=== PATIENT | female | born 1980 | race Two or more races ===

== ENCOUNTER → 2021-11-17 08:08 | Outpatient (BNVA) | payer OTHER, SELFPAY | PROVIDERS: PCP Internal Medicine; Visit Provider Nurse Practitioner Family | DX: G43.109 Migraine with aura, not intractable, without status migrainosus (principal); G47.9 Sleep disorder, unspecified; G47.19 Other hypersomnia; R06.83 Snoring; M54.2 Cervicalgia | CPT/HCPCS: 99202 ==

== ENCOUNTER 2022-02-05 10:57 | Outpatient (REF) | payer OTHER, SELFPAY ==
[2022-02-05 11:42] LABS: COVID-19 Test Negative (Negative)
== END 2022-02-05 10:58 | disposition home or self-care (01) ==
LOC: HO.LAB 10:57
PROVIDERS: Visit Provider Internal Medicine
DX: Z20.822 Contact with and (suspected) exposure to COVID-19 (principal)
CPT/HCPCS: 87635; C9803

== ENCOUNTER 2022-02-15 15:32 | Outpatient (REF) | payer OTHER, SELFPAY ==
[2022-02-15 16:27] LABS: COVID-19 Test Positive (Negative); IDNOW Serial# 9DD0AD1C
== END 2022-02-15 15:33 | disposition home or self-care (01) ==
LOC: HO.LAB 15:32
PROVIDERS: Visit Provider Internal Medicine
DX: Z20.822 Contact with and (suspected) exposure to COVID-19 (principal)
CPT/HCPCS: 87635; C9803

== ENCOUNTER → 2022-11-23 11:09 | Outpatient (BNVA) | payer OTHER, SELFPAY | PROVIDERS: PCP Internal Medicine; Visit Provider Nurse Practitioner Family | DX: G43.109 Migraine with aura, not intractable, without status migrainosus (principal); R06.02 Shortness of breath; G47.9 Sleep disorder, unspecified; G47.19 Other hypersomnia; R06.83 Snoring; M79.89 Other specified soft tissue disorders; F17.210 Nicotine dependence, cigarettes, uncomplicated | CPT/HCPCS: 99212 ==

== ENCOUNTER 2023-08-10 08:33 | Outpatient (AMB) | payer OTHER, SELFPAY ==
--- NOTE | 2023-08-10 08:44 | A.OFFVIS_ITS ---
Intake Vital Signs 08/10/23 08:54 Height 5 ft 4 in Weight 177 lb 2 oz BMI 30.4 BP 128/92 H Blood Pressure Location Lt brachial Position Sitting Respiration 18 Pulse 84 Pulse Source Pulse Oximeter Pulse Oximetry (%) 97 Oxygen Delivery Method Room Air Intake Visit Reasons: CHRONIC RIGHT SHOULDER,NECK PAIN Allergies No Known Allergies Allergy (Verified 08/10/23 08:41) HPI HPI Comments History of Present Illness Details Natasha is a very pleasant 43-year-old female who presents the office today for evaluation management of her chronic neck pain. Patient reports she has been suffering with this pain for approximately 7 years, denies inciting injury. Patient complains of midline cervical neck pain with radiation across the tops of both shoulders. Tenderness to palpation across the tops of both shoulders. Denies radiation of the pain down either arm. She does report some numbness and tingling to the fingers of both hands, she has an appointment scheduled in September with rheumatology for evaluation of carpal tunnel syndrome. Patient is also under the care of neurology for chronic headaches. She is currently taking Tylenol, naproxen and baclofen with limited improvement. She has been on baclofen for years. Completed physical therapy within the last year and continues with home exercise program but states that it has not improved her pain. She has attempted massage which provides some improvement but is short-lived. She has never been to chiropractor or acupuncture. Patient has also utilized heat, ice and topical medications with minimal improvement. Most recent imaging she reports was over a year ago. Last MRI was in 2018 she is unsure of the findings. Patient has undergone 3 sets of trigger point injections across her upper back/[facility]ers [facility]. Most recently performed 5 days ago with no improvement in her pain. Pain today is rated as an 8/10, constant, worse during the day. In terms of muscle damage condition is described as aching, spasming, hot, burning, stabbing, sharp, shooting, dull, tiring, exhausting, cramping, squeezing, numb, throbbing, tingling, pins and needles. Pain is negatively impacting patient's enjoyment of life, mood, normal work and sleep. [facility] Surgical History No pertinent past surgical history Family History Mother Lung cancer Smoker Father No problems noted. 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 Answers questions appropriately. Fully engaged in examination. Skin: warm, dry, intact HEENT: Normocephalic. Hearing intact. Cardiac: External chest normal in appearance. Respiratory: No cough, audible wheezing or stridor. Abdomen: without gross distension. MS: No obvious swelling or deformities. Able to transition from sit to stand unassisted. Ambulates with bilaterally normal heel strike and toe off Neurological: Oriented to person, place, time and situation. Thought process intact. No gait abnormalities appreciated. Psychiatric: Appropriate mood and affect. Good judgment and insight. Cervical Spine: Visible inspection without gross abnormality Moderate tenderness throughout bilateral upper and middle trapezius muscles Tender to palpation over paraspinal muscles Tender to palpation over cervical vertebrae Patient with mildly decreased cervical ROM in all planes with pain increase Spurling compression test positive Elvey's tension test negative Lhermitte's test negative. BUE strength 5/5 2+ radial pulses. Assessment & Plan Assessment & Plan (1) Paresthesia: Comment: bilateral hands Code(s): R20.2 - Paresthesia of skin (2) Cervical spondylosis: Code(s): M47.812 - Spondylosis without myelopathy or radiculopathy, cervical region (3) Trapezius muscle strain: Code(s): S46.819A - Strain of other muscles, fascia and tendons at shoulder and upper arm level, unspecified arm, initial encounter (4) Myofascial neck pain: Code(s): M54.2 - Cervicalgia Plan Patient presented to the office today for evaluation management of her chronic neck pain. She has exhausted conservative treatment including greater than 1 year attempting relief with Tylenol, NSAIDs, muscle relaxers, physical therapy, home exercise program, massage and trigger point injections. X-ray C-spine ordered for further evaluation Discontinue baclofen, prescription sent for tizanidine 2 mg p.o. t.i.d.. Patient advised on cautions for use. Records have been requested from family phys[facility] regarding previous attempts at interventional management. Given patient reports receiving steroid injections to her cervical area less than 1 week ago, limited options for diagnostic or therapeutic injections at this time. Patient will follow-up here in 3 weeks to further discuss interventional management after review of x-ray and records we receive from family [facility]. Tentatively will plan for fluoroscopy guided bilateral diagnostic C4-C5 C6 medial branch blocks with local anesthetic pending records review. All questions and concerns have been answered, patient agrees to the plan. Follow-up in 3 weeks, sooner if needed. Orders: Orders NE electromyogram (EMG) Today R20.2 - Paresthesia of skin XR cervical spine w flex/ext Today M54.2 - Cervicalgia Medications: New tizanidine D/C baclofen. Do not take with alcohol or other G[employer] depressants. No driving while taking this medication 2 mg PO TID PRN 90 tabs 0RF muscle spasticity Coding Level of Care Code New Pt Level 4 (00700) Diagnoses Paresthesia R20.2 Cervical spondylosis M47.812 Trapezius muscle strain S46.819A Myofascial neck pain M54.2
[2023-08-10 08:54] VITALS: BP 128/92; PULSE 84; RESP 18; O2SAT 97; BMI 30.4
== END 2023-08-10 09:22 | disposition home or self-care (01) ==
PROVIDERS: PCP Family Medicine; Visit Provider Registered Nurse Emergency
DX: R20.2 Paresthesia of skin (principal); M47.812 Spondylosis without myelopathy or radiculopathy, cervical region; S46.819A Strain of other muscles, fascia and tendons at shoulder and upper arm level, unspecified arm, initial encounter; M54.2 Cervicalgia
CPT/HCPCS: 99204

== ENCOUNTER → 2023-08-10 08:33 | Outpatient (BNVA) | payer OTHER, SELFPAY | PROVIDERS: PCP Family Medicine; Visit Provider Registered Nurse Emergency | DX: M47.812 Spondylosis without myelopathy or radiculopathy, cervical region (principal); M54.2 Cervicalgia; R20.2 Paresthesia of skin; S46.819A Strain of other muscles, fascia and tendons at shoulder and upper arm level, unspecified arm, initial encounter | CPT/HCPCS: 99202 ==

== ENCOUNTER 2023-08-19 08:32 | Outpatient (REF) | payer OTHER, SELFPAY ==
--- NOTE | ~2023-08-19 | XR_ITS ---
EXAMINATION: XR CERVICAL SPINE CLINICAL INFORMATION: Cervicalgia. COMPARISON: Radiograph cervical spine 05/23/2008. TECHNIQUE: 6 views of the cervical spine, inclusive of flexion and extension views, were obtained. FINDINGS: Nonspecific straightening of the cervical lordosis. No evidence of acute compression deformity or subluxation. Moderate intervertebral disc height loss at C5-C6. Small anterior osteophytes at C4, C5 and C6. Query some degree of mild neural foraminal encroachment on the oblique views at multiple levels. Otherwise, normal appearance of the posterior elements. No prevertebral soft tissue thickening. Lung apices are clear. XR/XR cervical spine w flex/ext IMPRESSION: 1. No acute compression deformity or malalignment. 2. Moderate intervertebral disc height loss at C5-C6. 3. Query mild multilevel neural foraminal encroachment.
== END 2023-08-19 08:33 | disposition home or self-care (01) ==
LOC: HO.XRAY 08:32
PROVIDERS: Visit Provider Registered Nurse Emergency
DX: M54.2 Cervicalgia (principal)
CPT/HCPCS: 72052

== ENCOUNTER 2023-09-01 07:58 | Outpatient (REF) | payer OTHER, SELFPAY ==
--- NOTE | 2023-09-01 08:10 | EMG_ITS ---
Bilateral median and ulnar motor and sensory studies were performed. Bilateral radial sensory studies were performed. Bilateral median and lateral antecubital brachial sensory studies were performed and paraspinal muscles were tested with a needle. IMPRESSION: Mild left ulnar neuropathy across cubital tunnel. Otherwise, this study did not reveal any significant abnormality. MD ABHINAV Delgado/AMANDA / [id number]
== END 2023-09-01 07:59 | disposition home or self-care (01) ==
LOC: HO.NEURO 07:58
PROVIDERS: PCP Family Medicine; Visit Provider Registered Nurse Emergency
DX: R20.2 Paresthesia of skin (principal)
CPT/HCPCS: 95886; 95913

== ENCOUNTER 2023-09-14 08:14 | Outpatient (AMB) | payer OTHER, SELFPAY ==
[2023-09-14 08:34] VITALS: BP 140/88; PULSE 80; O2SAT 98; BMI 30.7
--- NOTE | 2023-09-14 08:34 | A.OFFVIS_ITS ---
Intake Vital Signs 09/14/23 08:34 Height 5 ft 4 in Weight 179 lb BMI 30.7 BP 140/88 H Blood Pressure Location Rt brachial Position Sitting Pulse 80 Pulse Source Pulse Oximeter Pulse Oximetry (%) 98 Oxygen Delivery Method Room Air Intake Visit Reasons: f/u for headaches-LVM Intake Note: Patient presents for headaches I have a headache now no improvements Allergies No Known Allergies Allergy (Verified 09/14/23 08:35) Medication List - Last Reconciled 09/14/23 by JAZMINE Berumen albuterol sulfate 90 mcg/actuation 2 puffs inhalation Q4-6H PRN 30 days amitriptyline 75 mg PO BEDTIME baclofen 10 mg PO TID melatonin 3 mg PO BEDTIME naproxen sodium mg PO omeprazole 20 mg PO DAILY tizanidine 2 mg PO TID PRN trazodone 50 mg PO BEDTIME zolpidem 5 mg PO BEDTIME PRN HPI HPI Comments History of Present Illness Details 43-yr-old female presents for f/u visit. Pt denies any significant interval medical changes. She has been seeing pain management for neck and shoulder pain, as well as Darin L>R carpal tunnel s/s. They switched her baclofen to Tizanidine- which has helped her body pains. She is having a daily migraine. Sometimes, the migraines wake her up in the middle of the night. She does endorse snoring, unrefreshing sleep, difficulty staying asleep, fatigue, some daytime sleepiness, leg cramps, some restless legs, creepy crawling sensation, some LE swelling. Does not nap. Has a h/o anemia. Possibly her dad has RLS. She is still taking Amitriptyline 75mg qhs. She did not tolerate Topiramate. She did not tolerate Naratriptan- causes the same chest discomfort, worsened headaches. Baseline headache characteristics: Aura: Blurred vision and shiny lights. Mod-Severe. Headache locations vary, but mostly right frontal. Pain can be throbbing, stabbing. A/w Photophobia, phonophobia, osmophobia, N/V, dizziness, brain fog, generalized weakness, neck/shoulder pain. No focal weakness or PFSH Surgical History No pertinent past surgical history Family History Mother Lung cancer Smoker Father No problems noted. 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 [employer] Physical Exam Vital Signs: Last Vital Signs Pulse 80 09/14/23 08:34 BP 140/88 H 09/14/23 08:34 Pulse Ox 98 09/14/23 08:34 Oxygen Delivery Method Room Air 09/14/23 08:34 BMI result Body Mass Index 30.7 Const General: cooperative and no acute distress Orientation/consciousness: patient oriented x3 Resp Effort & Inspection: normal respiratory effort and able to speak in complete sentences Neuro General: patient oriented x3 Cranial nerves: Yes CN's II-XII intact bilaterally Cognition (Neuro): normal cognition Psych Appearance: grossly normal Mental Status: mental status grossly normal Speech and movement: Normal speech and movement present Affect: normal affect Attitude: cooperative Assessment & Plan Assessment & Plan (1) Chronic migraine without aura: Code(s): G43.709 - Chronic migraine without aura, not intractable, without status migrainosus (2) Migraine with aura: Code(s): G43.109 - Migraine with aura, not intractable, without status migrainosus (3) Sleep disorder, unspecified: Code(s): G47.9 - Sleep disorder, unspecified (4) Excessive daytime sleepiness: Code(s): G47.19 - Other hypersomnia (5) Snoring: Code(s): R06.83 - Snoring Plan For overall headache management: Continue to optimize good self-care, including but not limited to maintaining a healthy diet,? adequate fluid intake, adequate sleep, and engaging in regular physical activity. Pt's previous HST was not done- HST ordered to assess for sleep apnea. ? For acute migraine treatment: Trial Ubrelvy 100 prn. Continue prn Naproxen- may take w/ Naratriptan. Goal is to reduce use to < 15 days per month. Previous acute migarine tx's: Sumatriptan- not tolerated. Naratriptan- not tolerated. ? For headache prevention medication: Continue Amitriptyline from 75mg qhs- cannot increase dose d/t dry mouth. Stop Topiramate 25-50mg qhs- not tolerated. Start Emgality 240mg sc x's 1, then 120mg sc q month. Previous migraine prevention trials- Riboflavin and Magnesium- ineffective. Topiramate 25-50mg qhs- not tolerated. Migraine tx contraindications- BBs d/t asthma and SOB s/s. ? f/u in 3-4 months or sooner prn.. Orders: Orders RT home sleep study 09/14/23 G47.19 - Other hypersomnia, G47.9 - Sleep disorder, unspecified, R06.83 - Snoring Medications: New galcanezumab-gnlm (Emgality Pen) For loading dose 240 mg (2 mL) subcut ONCE 30 days 2 mL 0RF ubrogepant (Ubrelvy) take at onset of migraine, may repeat in 2hrs (may take w/ Ibuprofen) 50 - 100 mg (0.5 - 1 x 100 mg) PO ONCE 30 days PRN 16 tabs 3RF migraine headache Coding Level of Care Code Est Pt Level 4 (09685) Diagnoses Chronic migraine without aura G43.709 Migraine with aura G43.109 Sleep disorder, unspecified G47.9 Excessive daytime sleepiness G47.19 Snoring R06.83
== END 2023-09-14 09:22 | disposition home or self-care (01) ==
PROVIDERS: PCP Family Medicine; Visit Provider Nurse Practitioner Family
DX: G43.709 Chronic migraine without aura, not intractable, without status migrainosus (principal); G43.109 Migraine with aura, not intractable, without status migrainosus; G47.9 Sleep disorder, unspecified; G47.19 Other hypersomnia; R06.83 Snoring
CPT/HCPCS: 99214

== ENCOUNTER → 2023-09-14 08:14 | Outpatient (BNVA) | payer OTHER, SELFPAY | PROVIDERS: PCP Family Medicine; Visit Provider Nurse Practitioner Family | DX: G43.709 Chronic migraine without aura, not intractable, without status migrainosus (principal); G43.109 Migraine with aura, not intractable, without status migrainosus; G47.9 Sleep disorder, unspecified; G47.19 Other hypersomnia; R06.83 Snoring | CPT/HCPCS: 99212 ==

== ENCOUNTER 2023-09-22 09:00 | Outpatient (AMB) | payer OTHER, SELFPAY ==
--- NOTE | 2023-09-22 09:05 | MHC.OFFVIS ---
Intake Vital Signs 09/22/23 09:06 Height 5 ft 4 in Weight 179 lb BMI 30.7 BP 132/86 Blood Pressure Location Lt brachial Position Sitting Respiration 18 Pulse 101 H Pulse Source Pulse Oximeter Pulse Oximetry (%) 98 Oxygen Delivery Method Room Air Intake Visit Reasons: EMG Results from 09/01/23 Allergies No Known Allergies Allergy (Verified 09/22/23 09:05) HPI HPI Comments History of Present Illness Details Natasha presents back to the office today for follow up, review of recent EMG. EMG reviewed, results as per below Records from [facility] received and have been reviewed. Patient reports he has been taking the tizanidine, she is finding this more helpful than the baclofen she was previously taking. Continues with midline cervical neck pain and paraspinal muscle tenderness Reports no improvement of her symptoms after last set of trigger point injections performed July 2023 Had recent visit with Neurology, started on 2 new medications. One is waiting for PA to be approved. Prior: Natasha is a very pleasant 43-year-old female who presents the office today for evaluation management of her chronic neck pain. Patient reports she has been suffering with this pain for approximately 7 years, denies inciting injury. Patient complains of midline cervical neck pain with radiation across the tops of both shoulders. Tenderness to palpation across the tops of both shoulders. Denies radiation of the pain down either arm. She does report some numbness and tingling to the fingers of both hands, she has an appointment scheduled in September with rheumatology for evaluation of carpal tunnel syndrome. Patient is also under the care of neurology for chronic headaches. She is currently taking Tylenol, naproxen and baclofen with limited improvement. She has been on baclofen for years. Completed physical therapy within the last year and continues with home exercise program but states that it has not improved her pain. She has attempted massage which provides some improvement but is short-lived. She has never been to chiropractor or acupuncture. Patient has also utilized heat, ice and topical medications with minimal improvement. Most recent imaging she reports was over a year ago. Last MRI was in 2018 she is unsure of the findings. Patient has undergone 3 sets of trigger point injections across her upper back/shoulders at [facility]. Most recently performed 5 days ago with no improvement in her pain. Pain today is rated as an 8/10, constant, worse during the day. In terms of muscle damage condition is described as aching, spasming, hot, burning, stabbing, sharp, shooting, dull, tiring, exhausting, cramping, squeezing, numb, throbbing, tingling, pins and needles. Pain is negatively impacting patient's enjoyment of life, mood, normal work and sleep. [facility] Surgical History No pertinent past surgical history Family History Mother Lung cancer Smoker Father No problems noted. 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 Answers questions appropriately. Fully engaged in examination. Skin: warm, dry, intact HEENT: Normocephalic. Hearing intact. Cardiac: External chest normal in appearance. Respiratory: No cough, audible wheezing or stridor. Abdomen: without gross distension. MS: No obvious swelling or deformities. Able to transition from sit to stand unassisted. Ambulates with bilaterally normal heel strike and toe off Neurological: Oriented to person, place, time and situation. Thought process intact. No gait abnormalities appreciated. Psychiatric: Appropriate mood and affect. Good judgment and insight. Cervical Spine: Visible inspection without gross abnormality Tender to palpation over paraspinal muscles Tender to palpation over cervical vertebrae Patient with mildly decreased cervical ROM in all planes with pain increase Spurling compression test positive Elvey's tension test negative Lhermitte's test negative. BUE strength 5/5 2+ radial pulses. Results Reviewed Results Reviewed: 09/02/23 EMG: Bilateral median and ulnar motor and sensory studies were performed. Bilateral radial sensory studies were performed. Bilateral median and lateral antecubital brachial sensory studies were performed and paraspinal muscles were tested with a needle. IMPRESSION: Mild left ulnar neuropathy across cubital tunnel. Otherwise, this study did not reveal any significant abnormality. 08/22/23 XR/XR cervical spine w flex/ext FINDINGS: Nonspecific straightening of the cervical lordosis. No evidence of acute compression deformity or subluxation. Moderate intervertebral disc height loss at C5-C6. Small anterior osteophytes at C4, C5 and C6. Query some degree of mild neural foraminal encroachment on the oblique views at multiple levels. Otherwise, normal appearance of the posterior elements. No prevertebral soft tissue thickening. Lung apices are clear. IMPRESSION: 1. No acute compression deformity or malalignment. 2. Moderate intervertebral disc height loss at C5-C6. 3. Query mild multilevel neural foraminal encroachment. Assessment & Plan Assessment & Plan (1) Paresthesia: Comment: bilateral hands Code(s): R20.2 - Paresthesia of skin (2) Cervical spondylosis: Code(s): M47.812 - Spondylosis without myelopathy or radiculopathy, cervical region (3) Trapezius muscle strain: Code(s): S46.819A - Strain of other muscles, fascia and tendons at shoulder and upper arm level, unspecified arm, initial encounter (4) Myofascial neck pain: Code(s): M54.2 - Cervicalgia Plan Patient presented to the office today for follow-up chronic neck pain She has exhausted conservative treatment including greater than 1 year attempting relief with Tylenol, NSAIDs, muscle relaxers, physical therapy, home exercise program, massage and trigger point injections. X-ray cervical spine and EMG reviewed today, results as per above Continue with tizanidine 2 mg p.o. t.i.d. Patient advised on cautions for use. Discussed options for treatment including diagnostic interventional testing, epidural steroid injections, peripheral nerve stimulation with Sprint, RFA and more permanent neuromodulation. Informational pamphlets provided. Plan for fluoroscopy guided bilateral diagnostic C4-C5 C6 medial branch blocks with local anesthetic, the patient reports positive results of the diagnostic injections will plan for bilateral C5 medial branch Sprint peripheral nerve stimulator. All questions and concerns have been answered and patient agrees with the plan. Follow up after injections and sooner if needed. Medications: Refilled tizanidine 2 mg PO TID PRN 90 tabs 3RF for muscle spasm Coding Level of Care Code Est Pt Level 4 (58562) Diagnoses Paresthesia R20.2 Cervical spondylosis M47.812 Trapezius muscle strain S46.819A Myofascial neck pain M54.2
[2023-09-22 09:06] VITALS: BP 132/86; PULSE 101; RESP 18; O2SAT 98; BMI 30.7
== END 2023-09-22 09:17 | disposition home or self-care (01) ==
PROVIDERS: PCP Family Medicine; Visit Provider Registered Nurse Emergency
DX: R20.2 Paresthesia of skin (principal); M47.812 Spondylosis without myelopathy or radiculopathy, cervical region; S46.819A Strain of other muscles, fascia and tendons at shoulder and upper arm level, unspecified arm, initial encounter; M54.2 Cervicalgia
CPT/HCPCS: 99214

== ENCOUNTER → 2023-09-22 09:00 | Outpatient (BNVA) | payer OTHER, SELFPAY | PROVIDERS: PCP Family Medicine; Visit Provider Registered Nurse Emergency | DX: M47.812 Spondylosis without myelopathy or radiculopathy, cervical region (principal); R20.2 Paresthesia of skin; S46.819A Strain of other muscles, fascia and tendons at shoulder and upper arm level, unspecified arm, initial encounter; M54.2 Cervicalgia | CPT/HCPCS: 99212 ==

== ENCOUNTER 2023-12-26 09:42 | Emergency (ER) | payer OTHER, SELFPAY ==
[2023-12-26 10:07] VITALS: BP 146/90; PULSE 86; RESP 16; TEMP 36.8; O2SAT 99; BMI 30.9
--- NOTE | 2023-12-26 11:28 | ED.HA ---
HPI - Headache General Chief Complaint: Headache Stated Complaint: vomiting migraine Time Seen by Provider: 12/26/23 11:26 Source: patient Mode of arrival: ambulatory Limitations: no limitations History of Present Illness ED Provider: GENNY BERNAL Narrative: 43 yo female with PMH of migraines on oral meds and monthly injections, myofascial pain syndrome here with c/o daily headaches but this AM woke up with severe headache no trauma no thinners no fevers. She cannot keep any of her medications down. Denies known trigger. MD elicited complaint: headache and migraine Pertinent past history: migraines Onset (ago): hour(s) (few) Onset description: gradually Location: frontal and temporal Severity: severe Quality & Timing: throbbing Exacerbating factors: sitting/standing, light and noise Relieving factors: nothing Context: occurred at rest Associated symptoms: nausea, vomiting, photophobia and sensitivity to sound Treatments prior to arrival: other (unable to keep any of her meds down) Related Data Home Medications ?Medication ?Instructions ?Recorded ?Confirmed baclofen 10 mg tablet 10 mg PO TID 11/17/21 11/23/22 melatonin 3 mg tablet 3 mg PO BEDTIME 11/17/21 09/14/23 naproxen sodium 275 mg tablet mg PO 11/17/21 09/14/23 zolpidem 5 mg tablet 5 mg PO BEDTIME PRN 11/17/21 09/14/23 amitriptyline 75 mg tablet 75 mg PO BEDTIME 08/05/23 09/14/23 omeprazole 20 mg capsule,delayed 20 mg PO DAILY 08/05/23 09/14/23 release trazodone 50 mg tablet 50 mg PO BEDTIME 08/05/23 09/14/23 Previous Rx's ?Medication ?Instructions ?Recorded albuterol sulfate 90 mcg/actuation 2 puff inhalation Q4-6H PRN 11/23/22 aerosol inhaler shortness of breath or wheezing 30 days #8.5 grams ubrogepant 100 mg tablet (Ubrelvy) 50 - 100 mg (0.5 - 1 x 100 mg) PO 09/21/23 ONCE PRN migraine headache 30 days #16 tabs tizanidine 2 mg tablet 2 mg PO TID PRN for muscle spasm 09/22/23 #90 tabs galcanezumab-gnlm 120 mg/mL 120 mg subcut ONCE 30 days #1 mL 12/12/23 subcutaneous pen injector (Emgality Pen) Allergies Allergy/AdvReac Type Severity Reaction Status Date / Time No Known Allergies Allergy Verified 12/26/23 10:10 Review of Systems Review of Systems: Constitutional : No Fever, No Chills, No Fatigue ENT/Mouth : No sore throat, No Rhinorrhea Eyes: No Eye Pain, No Swelling, No Redness Cardiovascular : No Chest Pain, No SOB, No Dyspnea on Exertion Respiratory : No Cough, No Sputum Gastrointestinal : pos Nausea, pos Vomiting, No Diarrhea, No abdominal Pain Genitourinary : No Dysuria, No Urinary Frequency, No Hematuria, Musculoskeletal : No joint pain, No Myalgias, No Joint Swelling Skin : No Skin Lesions, No rash Neuro : No Weakness, No Numbness, No Dizziness, positive Headache Psych : No Anxiety/Panic, No Depression Heme/Lymph: No Bruising, No Bleeding,No Lymphadenopathy All other systems reviewed and are negative [facility] Past Medical History Attestation statement: The following information was validated with the patient. Source: old records reviewed Medical History Swelling of both lower extremities Chronic migraine with aura Chronic migraine without aura Migraine with aura Surgical History No pertinent past surgical history Family History Family History Mother Lung cancer Smoker Father No problems noted. 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 Oriented X3. in pain mild acute distress. Eyes: Pupils equal, round and reactive to light. ENT: Pharynx normal. Neck: Normal inspection. Neck supple. CVS: Normal heart rate and rhythm. Pulses normal. Respiratory: No respiratory distress. Breath sounds normal. Abdomen: Soft and non-tender. Skin: Skin warm and dry. Normal skin color. Normal skin turgor. Extremities: No lower extremity edema. Neuro: Oriented X 3. No motor deficit. No sensory deficit. Medications Administered Generic Name Dose Route Start Last Admin Trade Name Freq PRN Reason Stop Dose Admin Sodium Chloride 1,000 mls @ 999 mls/hr 12/26/23 11:42 12/26/23 11:58 Ns IV 12/26/23 12:42 999 mls/hr .Q1H1M ONE Administration Discontinued Medications Generic Name Dose Route Start Last Admin Trade Name Freq PRN Reason Stop Dose Admin Droperidol 1.25 mg 12/26/23 11:42 12/26/23 11:53 Droperidol 5 Mg/2 Ml Vial IVPUSH 12/26/23 11:43 1.25 mg ONCE ONE Administration Morphine Sulfate 4 mg 12/26/23 11:42 12/26/23 11:53 Morphine Sulfate 4 Mg/Ml Cartridge IVPUSH 12/26/23 11:43 4 mg ONCE ONE Administration Protocol Medical Decision Making Medical Decision Making [facility] Narrative: 43 yo female with PMH of migraines on oral meds and monthly injections, myofascial pain syndrome here with c/o migraine headache this AM upon waking with n/v and photophobia no trauma or thinners she is neuro intact at this time labs, and IV medications if no improvement will obtain CT scan but suspect migraine Differential Diagnosis Differential Diagnoses: The differential diagnosis associated with the presentation includes migraine dehydration Admission/Observation Consideration of admission/observation: Escalation of care including admission/observation considered feels much better no indication for CT head stable for DC Lab Data [facility] Lab Attestation statement: I reviewed the patient's lab results. 12/26/23 11:52 12/26/23 11:52 Labs: Lab Results 12/26/23 Range/Units 11:52 WBC 11.2 H (4.8-10.8) X10*3/uL RBC 5.24 (4.20-5.50) X10*6/uL Hgb 14.5 (12.0-16.0) g/dl Hct 43.4 (37.0-47.0) % MCV 82.8 (80.0-98.0) fL MCH 27.7 (27.0-33.0) pg MCHC 33.4 (31.0-35.0) g/dl RDW 14.9 (11.0-16.0) % Plt Count 341 (160-400) X10*3/uL MPV 9.2 L (9.4-12.3) fL Immature Gran % (Auto) 0.4 (0.0-0.4) % Neut % (Auto) 69.2 (45-73) % Lymph % (Auto) 23.5 (20-40) % Edmonson % (Auto) 5.9 (2-11) % Eos % (Auto) 0.5 (0-4) % Baso % (Auto) 0.5 (0-2) % Lymph # (Auto) 2.6 (1.2-4.9) X10*3/uL Edmonson # (Auto) 0.7 (0.1-1.2) X10*3/uL Eos # (Auto) 0.1 (0.0-0.4) X10*3/uL Baso # (Auto) 0.1 (0.0-0.2) X10*3/uL Abs Immat Gran (auto) 0.05 H (0.00-0.03) X10*3/uL Absolute Neuts (auto) 7.8 (2.0-8.3) x10*3/uL Absolute Nucleated RBC 0.000 (0.0-0.012) X10*3/uL Nucleated RBC % (auto) 0.0 (0.0-0.2) /100WBC Sodium 142 (135-145) mmol/L Potassium 4.4 (3.3-5.1) mmol/L Chloride 106 (96-108) mmol/L Carbon Dioxide 21 L (22-29) mmol/L Anion Gap 19 (12-20) BUN 7 L (9-16) mg/dL Creatinine 0.76 (0.5-1.4) mg/dL Estim Creat Clear Calc 97.6 Estimated GFR > 60 Random Glucose 99 (60-115) mg/dL Calcium 10.4 H (8.4-10.2) mg/dL Independent Historian Clinical information obtained from an independent historian. History obtained from or confirmed by: Spouse External Record Review External record reviewed: Office record Tests considered The following testing was considered but not selected: hx of migraines no meningeal signs CT head no indicated Discharge Plan Discharge Clinical Impression: Migraine Qualifiers: Migraine type: unspecified Status migrainosus presence: without status migrainosus Intractability: not intractable Qualified Code(s): G43.909 - Migraine, unspecified, not intractable, without status migrainosus Patient Disposition: Home, Self-Care Instructions: Migraine Headache (ED) Additional Instructions: return for worsening symptoms persistent headache, vomiting, confusion, fevers or any other concerns stay hydrated and out of the heat Prescriptions: No Action Ubrelvy 100 mg tablet 50 - 100 mg PO ONCE PRN (Reason: migraine headache) 30 Days Qty: 16 3RF Rx Instructions: take at onset of migraine, may repeat in 2hrs (may take w/ Ibuprofen) Emgality Pen 120 mg/mL pen injector 120 mg subcut ONCE 30 Days Qty: 1 6RF baclofen 10 mg tablet 10 mg PO TID melatonin 3 mg tablet 3 mg PO BEDTIME naproxen sodium 275 mg tablet PO zolpidem 5 mg tablet 5 mg PO BEDTIME PRN albuterol sulfate 90 mcg/actuation HFA aerosol inhaler 2 puff inhalation Q4-6H PRN (Reason: shortness of breath or wheezing) 30 Days Qty: 8.5 1RF amitriptyline 75 mg tablet 75 mg PO BEDTIME omeprazole 20 mg capsule,delayed release(DR/EC) 20 mg PO DAILY trazodone 50 mg tablet 50 mg PO BEDTIME tizanidine 2 mg tablet 2 mg PO TID PRN (Reason: for muscle spasm) Qty: 90 3RF Stand Alone Forms: Work/School Release Print Language: New Zealander
[2023-12-26] MEDS: Morphine Sulfate 4 MG/ML CARTRIDGE IVPUSH (11:53)
[2023-12-26] MEDS: droPERidol 5 MG/2 ML VIAL 1.25 MG IVPUSH (11:53)
[2023-12-26 11:55] LABS: MANUAL DIFF FLAG NO
[2023-12-26 11:57] LABS: Basophils Absolute Auto 0.1 X10*3/uL (0.0-0.2); Basophils Percent Auto 0.5 % (0-2); Eosinophils Absolute Auto 0.1 X10*3/uL (0.0-0.4); Eosinophils Percent Auto 0.5 % (0-4); Hematocrit 43.4 % (37.0-47.0); Hemoglobin 14.5 g/dl (12.0-16.0); Imm Gran Abs Auto 0.05 X10*3/uL (0.00-0.03); Imm Gran Pct Auto 0.4 % (0.0-0.4); Lymphocytes Absolute Auto 2.6 X10*3/uL (1.2-4.9); Lymphocytes Percent Auto 23.5 % (20-40); Mean Corpuscular HGB Conc 33.4 g/dl (31.0-35.0); Mean Corpuscular Hemoglobin 27.7 pg (27.0-33.0); Mean Corpuscular Volume 82.8 fL (80.0-98.0); Mean Platelet Volume 9.2 fL (9.4-12.3); Monocytes Absolute Auto 0.7 X10*3/uL (0.1-1.2); Monocytes Percent Auto 5.9 % (2-11); Neutrophils Absolute Auto 7.8 x10*3/uL (2.0-8.3); Neutrophils Percent Auto 69.2 % (45-73); Platelet Count 341 X10*3/uL (160-400); Red Blood Count 5.24 X10*6/uL (4.20-5.50); Red Cell Distribution Width 14.9 % (11.0-16.0); White Blood Count 11.2 X10*3/uL (4.8-10.8)
[2023-12-26] MEDS: 0.9 % Sodium Chloride 1,000 ML 999 ML IV (11:58)
[2023-12-26 12:14] LABS: Anion Gap 19 (12-20); Blood Urea Nitrogen 7 mg/dL (9-16); Calcium 10.4 mg/dL (8.4-10.2); Carbon Dioxide 21 mmol/L (22-29); Chloride 106 mmol/L (96-108); Creatinine Clr Calc Pharmacy 97.6; Estimated Glomerular Filt Rate > 60; Glucose Random 99 mg/dL (60-115); Potassium 4.4 mmol/L (3.3-5.1); Sodium 142 mmol/L (135-145)
[2023-12-26 13:16] VITALS: BP 150/88; PULSE 84; RESP 18; TEMP 36.2; O2SAT 100
== END 2023-12-26 13:17 | disposition home or self-care (01) ==
PROVIDERS: Emergency Provider Emergency Medicine
DX: G43.909 Migraine, unspecified, not intractable, without status migrainosus (principal); R11.2 Nausea with vomiting, unspecified; Z79.899 Other long term (current) drug therapy
CPT/HCPCS: 36415; 80048; 85025; 96361; 96374; 96375; 99283; 99284; J1790; J2270

== ENCOUNTER 2024-01-24 07:19 | Outpatient (REF) | payer OTHER, SELFPAY | END 2024-01-24 07:20 | disposition home or self-care (01) | LOC: CF 07:19 | PROVIDERS: Visit Provider Anesthesiology | DX: Z13.89 Encounter for screening for other disorder (principal) ==

== ENCOUNTER 2024-05-06 18:42 | Emergency (ER) | payer OTHER, SELFPAY ==
--- NOTE | 2024-05-06 18:46 | ED.HA ---
HPI - Headache General Chief Complaint: Headache Stated Complaint: migraine/high bp Related Data Home Medications ?Medication ?Instructions ?Recorded ?Confirmed baclofen 10 mg tablet 10 mg PO TID 11/17/21 11/23/22 melatonin 3 mg tablet 3 mg PO BEDTIME 11/17/21 09/14/23 naproxen sodium 275 mg tablet mg PO 11/17/21 09/14/23 zolpidem 5 mg tablet 5 mg PO BEDTIME PRN 11/17/21 09/14/23 amitriptyline 75 mg tablet 75 mg PO BEDTIME 08/05/23 09/14/23 omeprazole 20 mg capsule,delayed 20 mg PO DAILY 08/05/23 09/14/23 release trazodone 50 mg tablet 50 mg PO BEDTIME 08/05/23 09/14/23 Previous Rx's ?Medication ?Instructions ?Recorded albuterol sulfate 90 mcg/actuation 2 puff inhalation Q4-6H PRN 11/23/22 aerosol inhaler shortness of breath or wheezing 30 days #8.5 grams ubrogepant 100 mg tablet (Ubrelvy) 50 - 100 mg (0.5 - 1 x 100 mg) PO 09/21/23 ONCE PRN migraine headache 30 days #16 tabs tizanidine 2 mg tablet 2 mg PO TID PRN for muscle spasm 09/22/23 #90 tabs galcanezumab-gnlm 120 mg/mL 120 mg subcut ONCE 30 days #1 mL 02/13/24 subcutaneous pen injector (Emgality Pen) Allergies Allergy/AdvReac Type Severity Reaction Status Date / Time No Known Allergies Allergy Verified 05/06/24 18:48 [facility] Past Medical History Medical History Swelling of both lower extremities Chronic migraine with aura Chronic migraine without aura Migraine with aura Surgical History No pertinent past surgical history Family History Family History Mother Lung cancer Smoker Father No problems noted. 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 Deferred additional HPI, ROS and PE to primary provider. 43yo with history of migraines here with [place] x weeks despite taking her migraine plan at home (see neurology notes). Will need IV and IV meds here. BRANDON Hameed CHIEF LIFESTYLE OFFICER Discharge Plan Discharge Clinical Impression: Migraine Patient Disposition: Left W/O Completing Treatment Prescriptions: No Action Ubrelvy 100 mg tablet 50 - 100 mg PO ONCE PRN (Reason: migraine headache) 30 Days Qty: 16 3RF Rx Instructions: take at onset of migraine, may repeat in 2hrs (may take w/ Ibuprofen) Emgality Pen 120 mg/mL pen injector 120 mg subcut ONCE 30 Days Qty: 1 6RF baclofen 10 mg tablet 10 mg PO TID melatonin 3 mg tablet 3 mg PO BEDTIME naproxen sodium 275 mg tablet PO zolpidem 5 mg tablet 5 mg PO BEDTIME PRN albuterol sulfate 90 mcg/actuation HFA aerosol inhaler 2 puff inhalation Q4-6H PRN (Reason: shortness of breath or wheezing) 30 Days Qty: 8.5 1RF amitriptyline 75 mg tablet 75 mg PO BEDTIME omeprazole 20 mg capsule,delayed release(DR/EC) 20 mg PO DAILY trazodone 50 mg tablet 50 mg PO BEDTIME tizanidine 2 mg tablet 2 mg PO TID PRN (Reason: for muscle spasm) Qty: 90 3RF Discharge Date/Time: 05/06/24 20:05
[2024-05-06 18:47] VITALS: BP 133/83; PULSE 91; RESP 20; TEMP 36.5; O2SAT 99; BMI 30.8
--- NOTE | 2024-05-06 20:05 | PC.NURSE ---
Pt not in waiting room at time being called 1943. Pt LWCT.
== END 2024-05-06 20:05 | disposition left against medical advice (07) ==
PROVIDERS: Emergency Provider Emergency Medicine
DX: G43.909 Migraine, unspecified, not intractable, without status migrainosus (principal); I10 Essential (primary) hypertension; F17.210 Nicotine dependence, cigarettes, uncomplicated; Z79.899 Other long term (current) drug therapy
CPT/HCPCS: 99281

== ENCOUNTER 2024-06-15 10:47 | Outpatient (AMB) | payer OTHER, SELFPAY ==
--- NOTE | 2024-06-15 10:49 | A.OFFVIS_ITS ---
Vital Signs 06/15/24 10:54 Height 5 ft 4 in Weight 180 lb 8 oz BMI 31.0 BP 153/92 H Blood Pressure Location Lt brachial Position Sitting Pulse 84 Pulse Source Pulse Oximeter Pulse Oximetry (%) 97 Oxygen Delivery Method Room Air Intake Visit Reasons: CONTINOUS HAND,RT SHOULDER PAIN Intake Note: Pain today 7/10 Full Time Required: No Accompanied by: Self / Same As Patient Allergies No Known Allergies Allergy (Verified 06/15/24 10:55) HPI Comments Details: Patient presents back to the office today for follow-up, left hand pain Since last visit patient reports left hand pain has continued. Rated a 7/10 Described as burning, aching, pins and needles. She has continue with the tizanidine with some improvement. No improvement with Motrin, topical medications or massage Denies any new injury, trauma, fall Prior: Natasha presents back to the office today for follow up, review of recent EMG. EMG reviewed, results as per below Records from family physiatry received and have been reviewed. Patient reports he has been taking the tizanidine, she is finding this more helpful than the baclofen she was previously taking. Continues with midline cervical neck pain and paraspinal muscle tenderness Reports no improvement of her symptoms after last set of trigger point injections performed July 2023 Had recent visit with Neurology, started on 2 new medications. One is waiting for PA to be approved. Prior: Natasha is a very pleasant 43-year-old female who presents the office today for evaluation management of her chronic neck pain. Patient reports she has been suffering with this pain for approximately 7 years, denies inciting injury. Patient complains of midline cervical neck pain with radiation across the tops of both shoulders. Tenderness to palpation across the tops of both shoulders. Denies radiation of the pain down either arm. She does report some numbness and tingling to the fingers of both hands, she has an appointment scheduled in September with rheumatology for evaluation of carpal tunnel syndrome. Patient is also under the care of neurology for chronic headaches. She is currently taking Tylenol, naproxen and baclofen with limited improvement. She has been on baclofen for years. Completed physical therapy within the last year and continues with home exercise program but states that it has not improved her pain. She has attempted massage which provides some improvement but is short-lived. She has never been to chiropractor or acupuncture. Patient has also utilized heat, ice and topical medications with minimal improvement. Most recent imaging she reports was over a year ago. Last MRI was in 2018 she is unsure of the findings. Patient has undergone 3 sets of trigger point injections across her upper back/shoulders at [facility]. Most recently performed 5 days ago with no improvement in her pain. Pain today is rated as an 8/10, constant, worse during the day. In terms of muscle damage condition is described as aching, spasming, hot, burning, stabbing, sharp, shooting, dull, tiring, exhausting, cramping, squeezing, numb, throbbing, tingling, pins and needles. Pain is negatively impacting patient's enjoyment of life, mood, normal work and sleep. [facility] Medical History Swelling of both lower extremities Chronic migraine with aura Chronic migraine without aura Migraine with aura Surgical History No pertinent past surgical history Family History Mother Lung cancer Smoker Father No problems noted. 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 Answers questions appropriately. Fully engaged in examination. Skin: warm, dry, intact HEENT: Normocephalic. Hearing intact. Cardiac: External chest normal in appearance. Respiratory: No cough, audible wheezing or stridor. Abdomen: without gross distension. MS: No obvious swelling or deformities. Able to transition from sit to stand unassisted. Ambulates with bilaterally normal heel strike and toe off Left upper extremity: 5/5 strength. 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 No visible swelling. Tenderness to palpation over left ulnar nerve with radiation down the arm to the hand. Neurological: Oriented to person, place, time and situation. Thought process intact. No gait abnormalities appreciated. Psychiatric: Appropriate mood and affect. Good judgment and insight. Results Reviewed Results Reviewed: 09/02/23 EMG: Bilateral median and ulnar motor and sensory studies were performed. Bilateral radial sensory studies were performed. Bilateral median and lateral antecubital brachial sensory studies were performed and paraspinal muscles were tested with a needle. IMPRESSION: Mild left ulnar neuropathy across cubital tunnel. Otherwise, this study did not reveal any significant abnormality. 08/22/23 XR/XR cervical spine w flex/ext FINDINGS: Nonspecific straightening of the cervical lordosis. No evidence of acute compression deformity or subluxation. Moderate intervertebral disc height loss at C5-C6. Small anterior osteophytes at C4, C5 and C6. Query some degree of mild neural foraminal encroachment on the oblique views at multiple levels. Otherwise, normal appearance of the posterior elements. No prevertebral soft tissue thickening. Lung apices are clear. IMPRESSION: 1. No acute compression deformity or malalignment. 2. Moderate intervertebral disc height loss at C5-C6. 3. Query mild multilevel neural foraminal encroachment. Assessment & Plan Assessment & Plan (1) Paresthesia: Comment: bilateral hands Code(s): R20.2 - Paresthesia of skin Category: Medical (2) Cervical spondylosis: Code(s): M47.812 - Spondylosis without myelopathy or radiculopathy, cervical region Category: Medical (3) Trapezius muscle strain: Code(s): S46.819A - Strain of other muscles, fascia and tendons at shoulder and upper arm level, unspecified arm, initial encounter Category: Medical (4) Myofascial neck pain: Code(s): M54.2 - Cervicalgia Category: Medical (5) Ulnar neuropathy at elbow of left upper extremity: Code(s): G56.22 - Lesion of ulnar nerve, left upper limb Category: Medical (6) Left hand pain: Code(s): M79.642 - Pain in left hand Category: Medical Plan Patient presented to the office today for follow-up left hand pain She has exhausted conservative treatment including greater than 1 year attempting relief with Tylenol, NSAIDs, muscle relaxers, massage New prescription for gabapentin 100 mg 3 times daily as needed Continue with tizanidine 2 mg p.o. t.i.d. Patient advised on cautions for use. Order placed for PT eval and treat Left elbow brace to support for ulnar neuropathy sent to: [facility] All questions and concerns have been answered and patient agrees with the plan. Follow up after PT, sooner if needed. Orders: Orders PT Evaluation and Treatment Today G56.22 - Lesion of ulnar nerve, left upper limb, M79.642 - Pain in left hand Medications: New arm brace Left elbow brace for ulnar neuropathy 1 ea 0RF G56.22 - Lesion of ulnar nerve, left upper limb gabapentin 100 mg PO TID 90 caps 3RF Coding Level of Care Code Est Pt Level 3 (17438) Complex EM visit Add On G2211 Diagnoses Paresthesia R20.2 Cervical spondylosis M47.812 Trapezius muscle strain S46.819A Myofascial neck pain M54.2 Ulnar neuropathy at elbow of left upper extremity G56.22 Left hand pain M79.642
[2024-06-15 10:54] VITALS: BP 153/92; PULSE 84; O2SAT 97; BMI 31.0
== END 2024-06-15 11:15 | disposition home or self-care (01) ==
PROVIDERS: Visit Provider Registered Nurse Emergency
DX: R20.2 Paresthesia of skin (principal); M47.812 Spondylosis without myelopathy or radiculopathy, cervical region; S46.819A Strain of other muscles, fascia and tendons at shoulder and upper arm level, unspecified arm, initial encounter; M54.2 Cervicalgia; G56.22 Lesion of ulnar nerve, left upper limb; M79.642 Pain in left hand
CPT/HCPCS: 99213; G2211

== ENCOUNTER → 2024-06-15 10:47 | Outpatient (BNVA) | payer OTHER, SELFPAY | PROVIDERS: Visit Provider Registered Nurse Emergency | DX: M47.812 Spondylosis without myelopathy or radiculopathy, cervical region (principal); R20.2 Paresthesia of skin; M54.2 Cervicalgia; M79.642 Pain in left hand; G56.22 Lesion of ulnar nerve, left upper limb; S46.819D Strain of other muscles, fascia and tendons at shoulder and upper arm level, unspecified arm, subsequent encounter | CPT/HCPCS: 99212 ==

== ENCOUNTER 2024-09-20 14:57 | Outpatient (AMB) | payer OTHER, SELFPAY ==
--- NOTE | 2024-09-20 15:03 | A.OFFVIS_ITS ---
Vital Signs 09/20/24 15:06 Height 5 ft 4 in Weight 177 lb 8 oz BMI 30.5 BP 131/85 Blood Pressure Location Lt brachial Position Sitting Pulse 79 Pulse Source Pulse Oximeter Pulse Oximetry (%) 98 Oxygen Delivery Method Room Air Intake Visit Reasons: Bilateral Hip Pain w/ More Pain on Right Side Intake Note: Pain today 710 Dish Carrier Required: No Accompanied by: Self / Same As Patient Allergies No Known Allergies Allergy (Verified 09/20/24 15:07) HPI Comments Details: The patient is a 44-year-old female presenting with right-sided radicular leg pain. The pain originated approximately a year ago, with notable worsening in the past two weeks. She describes the pain as radiating from her right sided lower back into her right leg, accompanied by numbness in the anterior thigh and leg in L4-L5 distribution. Patient also reports significant right hip pain with movements and ambulation. She experiences pain exacerbation with physical activities, which significantly impairs her daily function and sleep. The patient manages her chronic neck and left hand pain with medications, including gabapentin and baclofen, but reports ineffectiveness for her current leg pain symptoms. Previous treatments with ibuprofen, OTC topical creams and patches and ice/heat therapy provide minimal relief for her condition. The patient denies any associated trauma or falls. Denies previous spine or hip joint injections or surgery. Denies any fever or chills, abdominal or groin pain, weakness, foot drop, bladder or bowel dysfunction, or saddle anesthesia. - Pain onset: Approximately one year ago, worsening over the past two weeks - Quality/Character: Right-sided, radiating from the right lower back to the lateral and slightly anterior leg; described as radiating, shooting, throbbing, tingling, spasming and numbing - Primary location: Right leg and lower back, right hip - Radiation: Anterior thigh to the leg in L4-L5 distribution. No groin pain. No symptoms on the left. - Exacerbating factors: Walking long distances, stairs, driving, and standing - Activities affected: Sleep disturbances, affecting sexual activities - Relieving factors: None noted effective, rest, NSAIDs, activity modifications- mild relief - Previous treatments: Gabapentin, baclofen, and NSAIDs, which are ineffective - Affect: Pain significantly impacts sleep quality and sexual activities. - Analgesia: Currently treated with gabapentin (100 mg increased to 300 mg three times daily), baclofen, amitriptyline, tizanidine, naproxen; ineffective. - Adverse Effects: No significant side effects reported at current dosage; historical concerns with cyclobenzaprine causing stomach pain. - Activities of Daily Living: Pain limits walking, stair navigation, driving, affects sleep and sexual activities. - Aberrant Drug Related Behaviors: None reported. 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 Rated a 7/10 Described as burning, aching, pins and needles. She has continue with the tizanidine with some improvement. No improvement with Motrin, topical medications or massage Denies any new injury, trauma, fall Prior: Natasha presents back to the office today for follow up, review of recent EMG. EMG reviewed, results as per below Records from family physiatry received and have been reviewed. Patient reports he has been taking the tizanidine, she is finding this more helpful than the baclofen she was previously taking. Continues with midline cervical neck pain and paraspinal muscle tenderness Reports no improvement of her symptoms after last set of trigger point injections performed July 2023 Had recent visit with Neurology, started on 2 new medications. One is waiting for PA to be approved. Prior: Natasha is a very pleasant 43-year-old female who presents the office today for evaluation management of her chronic neck pain. Patient reports she has been suffering with this pain for approximately 7 years, denies inciting injury. Patient complains of midline cervical neck pain with radiation across the tops of both shoulders. Tenderness to palpation across the tops of both shoulders. Denies radiation of the pain down either arm. She does report some numbness and tingling to the fingers of both hands, she has an appointment scheduled in September with rheumatology for evaluation of carpal tunnel syndrome. Patient is also under the care of neurology for chronic headaches. She is currently taking Tylenol, naproxen and baclofen with limited improvement. She has been on baclofen for years. Completed physical therapy within the last year and continues with home exercise program but states that it has not improved her pain. She has attempted massage which provides some improvement but is short-lived. She has never been to chiropractor or acupuncture. Patient has also utilized heat, ice and topical medications with minimal improvement. Most recent imaging she reports was over a year ago. Last MRI was in 2018 she is unsure of the findings. Patient has undergone 3 sets [facility] Most recently performed 5 days ago with no improvement in her pain. Pain today is rated as an 8/10, constant, worse during the day. In terms of muscle damage condition is described as aching, spasming, hot, burning, stabbing, sharp, shooting, dull, tiring, exhausting, cramping, squeezing, numb, throbbing, tingling, pins and needles. Pain is negatively impacting patient's enjoyment of life, mood, normal work and sleep. [facility] Medical History Swelling of both lower extremities Chronic migraine with aura Chronic migraine without aura Migraine with aura Surgical History No pertinent past surgical history Family History (Reviewed 09/14/23 @ 08:36 by Joselyn Jenkins [facility]) Mother Lung cancer Smoker Father No problems noted. 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 Alert and oriented. Mood and affect appropriate. Follows and participates in conversation appropriately. Respiratory effort is unlabored. No cough. Able to transition from sit to stand unassisted. Ambulates with normal heel strike and toe off on the left, increased back and r ight leg pain with heel/toe standing. General: Yes no CVA tenderness Back/Spine/Pelvis Other: Patient is able to walk and stand on heels and tip toes with moderate difficulty on the left otherwise demonstrating good motor tone. No limping. Can flex forward to 70-75 degrees and extend to 10-15 degrees before experiencing lumbar pain. Demonstrates 5/5 left and 4/5 right due to pain strength of quadriceps bilaterally as well as flexion/dorsiflexion of bilateral feet against resistance. 2+ pedal pulses bilaterally. Straight leg rise with dorsiflexion positive on the right. +2 left +1 right patellar and +2 achilles reflexes bilaterally. Facet loading test positive bilaterally. Carolynn sign tender on the right, Gerald?s, Pelvic compression and Stinchfield tests reproduces right lateral hip but not low back or buttock pain. Mild groin pain with I/E hip rotations on the right. Valsalva maneuver negative. Back: no CVA tenderness Cervical Spine: cervical ROM normal, cervical muscular tenderness, pain with ce rvical ROM and No Cervical spine tenderness Thoracic/Lumbar Spine: thoracic and lumbar spine normal to inspection, No Thoracic/lumbar spine scar(s), Lasegue's sign positive on the right and localized, pain with thoraco-lumbar ROM, paraspinal muscle tenderness on the right greater than left, No thoracic spinal tenderness and lumbar spinal tenderness (L4-S1) Pelvis: buttock tenderness on the right and no sciatic notch tenderness Sacroiliac joints: on the right tender to palpation and on the left nontender Extrem General: Yes capillary refill normal, Yes no clubbing, cyanosis or edema and Yes no calf tenderness Results Reviewed Results Reviewed: No imaging reports are not available today for review. Assessment & Plan Assessment & Plan (1) Right hip pain: Code(s): M25.551 - Pain in right hip Category: Medical (2) Right lumbar radiculopathy: Code(s): M54.16 - Radiculopathy, lumbar region Category: Medical (3) Low back pain radiating to right leg: Code(s): M54.50 - Low back pain, unspecified; M79.604 - Pain in right leg Category: Medical (4) Right hip pain: Code(s): M25.551 - Pain in right hip Category: Medical (5) Right lumbar radiculopathy: Code(s): M54.16 - Radiculopathy, lumbar region Category: Medical (6) Low back pain radiating to right leg: Code(s): M54.50 - Low back pain, unspecified; M79.604 - Pain in right leg Category: Medical (7) Myofascial neck pain: Code(s): M54.2 - Cervicalgia Category: Medical (8) Sacroiliitis: Code(s): M46.1 - Sacroiliitis, not elsewhere classified Category: Medical Plan The current plan focuses on modifying the patient's pain management regimen. Gabapentin is increased to 300 mg three times a day to better address the patient's refractory pain. Ceasing the use of tizanidine and starting metocarbamol is considered, with the avoidance of baclofen during the interim to monitor any muscle relaxation efficacy. X-rays of the back and hip are ordered to explore potential skeletal or degenerative causes of the symptoms, with subsequent plans for an MRI if necessary. Initial physical therapy is encouraged. Monitoring for arthritis, particularly in the hip, is essential given the reported chronicity and progression of symptoms. Follow-up plans will be arranged post-diagnostic imaging to re-evaluate the current pain strategy. Patient was informed and verbally consented to the use of an ambient scribe for clinic note documentation during this visit. Orders: Orders XR lumbar spine 4V min Today M54.16 - Radiculopathy, lumbar region, M54.50 - Low back pain, unspecified, M79.604 - Pain in right leg XR hip RT w PEL1V Today M25.551 - Pain in right hip PT Evaluation and Treatment Today M25.551 - Pain in right hip, M46.1 - Sacroiliitis, not elsewhere classified, M54.16 - Radiculopathy, lumbar region, M54.50 - Low back pain, unspecified, M79.604 - Pain in right leg Medications: New methocarbamol 750 mg PO Q8H 30 days 90 tabs 0RF muscle spasms M54.16 - Radiculopathy, lumbar region, M54.2 - Cervicalgia, M54.50 - Low back pain, unspecified, M79.604 - Pain in right leg Changed From gabapentin 100 mg PO TID 90 caps 3RF M25.551 - Pain in right hip, M54.16 - Radiculopathy, lumbar region, M54.50 - Low back pain, unspecified, M79.604 - Pain in right leg To gabapentin 300 mg PO TID 30 days 90 caps 1RF pain M25.551 - Pain in right hip, M54.16 - Radiculopathy, lumbar region, M54.50 - Low back pain, unspecified, M79.604 - Pain in right leg Discontinued tizanidine Discontinued Reason: Patient Completed Course 2 mg PO TID PRN 90 tabs 3RF for muscle spasm Patient Instructions: I discussed with the patient the likely causes of her symptoms, including considerations for arthritis, pinched nerve, or disc involvement given her symptom presentation and chronicity. We reviewed the treatment plan that includes increasing gabapentin to 300 mg thrice daily and introducing metocarbamol, replacing tizanidine while observing her response. I explained the necessity for X-ray imaging of her back and hip prior to obtaining an MRI for clearer diagnostic clarification. We also discussed the possibility of sacroiliac joint pain and examined potential injections or interventions based on results. Consent for this approach was obtained from the patient after I reviewed the planned diagnostic steps and potential treatment avenues. Follow-up arrangements for revisiting care options will be initiated after obtaining imaging results. - Increase gabapentin to 300 mg, three times daily. - Stop taking tizanidine; start taking metocarbamol as directed. - Complete X-ray imaging of back and hip at the hospital as soon as possible. - Engage in physical therapy as advised, monitoring symptom response. - Follow up with the office once imaging results are obtained. Coding Level of Care Code Est Pt Level 4 (39953) Complex EM visit Add On G2211 Diagnoses Right hip pain M25.551 Right lumbar radiculopathy M54.16 Low back pain radiating to right leg M54.50; M79.604 Myofascial neck pain M54.2 Sacroiliitis M46.1
[2024-09-20 15:06] VITALS: BP 131/85; PULSE 79; O2SAT 98; BMI 30.5
--- OUTSIDE RECORDS SUMMARY | 2024-09-20 18:42 | XMS_ITS | Clinical Summary ---
Author Organization [facility] Address [address] [place] [phone] Phone Care Team Providers Care Coo Name Role Phone Yunior Krishnamurthy MD Primary Care Pr ovider Allergies Active Allergy Reactions Criticality Noted Date Comments Diclofenac 01/30/2020 itch Medications amitriptyline (ELAVIL) 75 mg tablet TAKE 1 TABLET BY MOUTH EVERYDAY AT BEDTIME 4 Active ondansetron ODT (ZOFRAN-ODT) 8 mg disintegrating tablet Take 1 Tablet by mouth every 8 hours as needed for Nausea. 4 Active traZODone (DESYREL) 50 mg tablet Take 1 tablet by mouth at bedtime 4 Active melatonin 3 mg tablet TAKE 1 TABLET BY MOUTH EVERY DAY 4 Active pantoprazole (PROTONIX) 40 mg EC tablet Take 1 Tablet by mouth daily. Take in am on empty stoamch, wait 30 mins and then eat to activate the medication 4 Active famotidine (PEPCID) 20 mg tablet Take 1 Tablet by mouth 2 times daily as needed for Heartburn. 4 Active aluminum-magnesium hydroxide-simethic one (MAALOX) 200-200-20 mg/5 mL suspension Take 15 mL by mouth 4 times daily as needed for Other (heartburn). 4 Active arm brace (Wrist Brace) misc ELASTIC BANDAGES & SUPPORTS (WRIST BRACE DELUXE) MISC 1 Each by Does not apply route at bedtime. One Brace/splint for each wrist for carpal tunnel sundrome 3 Active tiZANidine (ZANAFLEX) 2 mg tablet TAKE 1 TABLET BY MOUTH EVERY 6 HOURS NEEDED FOR OTHER (MUSCLE SPASM). 30 tablet 4 Active Active Problems Problem Noted Date Diagnosed Date Hepatic steatosis 2023 Venous insufficiency of both lower extremities 0 12/11/2021 Chronic right shoulder pain 10/02/2020 Overview (04/17/2024): Last Assessment & Plan: Xrays 10/01/20 normal. Better with baclofen TID prn. LUQ pain 09/16/2020 DJD (degenerative joint disease) of cervical spi ne 10/12/2018 Snoring 09/21/2018 Overview (04/17/2024): 09/2018 Home Sleep Study did not reveal sleep apnea. Marijuana use disorder in remission 04/19/2018 Overview (04/17/2024): 09/16/2020 - she is aware she needs to d/c this in order for me to rx and continue zolpidem. She will d/c IMO DX update 2021 Last Assessment & Plan: 10/01/20 - pos THC - expected due to previous chronic use (see my note 09/16), but discussed with pt that I expect THC to be cleared after 30 days. Next UDS should be negative. She agrees. Functional dyspepsia 02/01/2018 Esophageal dysmotility 02/01/2018 GERD (gastroesophageal reflux disease) 7 Overview (04/17/2024): Persistent LUQ epigastric pain, black stools. Pt was advised to see PCP for GI referral, she has not done so. (Dyspepsia noted in 2013 [facility] [place] notes) Last Assessment & Plan: Persistent upper abd pain. Continue omeprazole, have CT and see GI as planned. Insomnia 11/30/2016 Overview (04/17/2024): Last Assessment & Plan: Sleeping much better with zolpidem. Continue current regimen. Random UDS sometime in the next 3 months. Migraine 11/30/2016 Overview (04/17/2024): Last Assessment & Plan: Continue amitriptyline for prevention. Refilled naproxen to use as needed. She uses this sparingly. Neck pain 11/30/2016 Overview (04/17/2024): Right side Herpes simplex 11/30/2016 Immunizations Name Administration Dates Next Due Hepatitis B (Recombivax HB-D ialysis) 18yo and older 05/30/2008,08/20/2003,07/30/1998 Influenza trivalent, with pr eservative (Fluzone; Afluria) 6mo and older 04/28/2015,08/03/2004 MMR, measles mumps and rubel la Live (Priorix; M-M-R II) 12mo and older 01/23/1991,12/09/1980 PPD Test 02/09/2017,01/27/2017 Td Tetanus diptheria (Tdvax) 7yo and older 08/20 Tdap Tetanus diptheria acell ular pertussis (Boostrix; Adacel) 7yo and older 01/07/2022,04/21/2019,04/20/2012 Surgical History Surgery Date Site/Laterality Comments TUBAL LIGATION PROCEDURE: HISTORICAL TUBAL LIGATION ESOPHAGOGASTRODUODENOSCOPY 06/22/2017 PROCEDURE: ND ESOPHAGOGASTRODUODENOSCOPY TRANSORAL DIAGNOSTIC; COMMENT: normal with normal duodenal biopsies COLONOSCOPY 04/25/2018 PROCEDURE: HISTORICAL COLONOSCOPY; COMMENT: normal to terminal ileum; normal random colonic biopsies Medical History Medical History Date Comments Insomnia 11/30/2016 DX:Insomnia History of Helicobacter pylo ri infection 11/30/2016 DX:History of Helicobacter p ylori infection Neck pain 11/30/2016 DX:Neck pain Migraine 11/30/2016 DX:Migraine GERD (gastroesophageal reflu x disease) 11/30/2016 DX:GERD (gastroesophageal re flux disease) Herpes simplex 11/30/2016 DX:Herpes simple x Functional dyspepsia 02/01/2018 DX:Function al dyspepsia Esophageal dysmotility 02/01/2018 DX:Esopha geal dysmotility Marijuana use 04/19/2018 DX:Marijuana use Chronic daily headache 04/17/2019 DX:Chroni c daily headache Functional dyspepsia DX:Function al dyspepsia Dysphagia DX:Dysphagia Hiatal hernia DX:Hiatal hernia Esophageal dysmotility DX:Esopha geal dysmotility Family History Medical History Relation Name Comments Breast cancer Neg Hx Colon cancer Neg Hx Ovarian cancer Neg Hx Social History Tobacco Use Types Packs/Day Years Used Date Smoking Tobacco: Every Day Cigarettes 0.2 26.3 Started: 1998 Smokeless Tobacco: Never Alcohol Use Standard Drinks/Week Comments Yes 0 (1 standard drink = 0.6 oz pur e alcohol) Comments Unknown Sex and Gender Information Value Date Recorded Sex Assigned at Not on file Legal Sex Female 4:35 AM EST Gender Identity Not on file Sexual Orientation Not on file Obstetrics History Last Filed Vital Signs Vital Sign Reading Time Taken Comments Blood Pressure 120/70 02/21/2024 4:58 PM EDT Pulse 88 02/21/2024 4:58 PM EDT Temperature - - Respiratory Rate - - Oxygen Saturation - - Inhaled Oxygen Concentration - - Weight 82.1 kg (181 lb) 02/21/2024 4:58 PM EDT Height 162.6 cm (5' 4 ) 02/21/2024 4:58 PM EDT Body Mass Index 31.07 02/21/2024 4:58 PM EDT Plan of Treatment Upcoming Encounters Date Type Department Care Team (Late st Contact Info) Description 11/13/2024 4:30 PM EDT Appointment Radiology Department [address] [phone] 11/30/2024 10:00 AM EDT Office Visit Adult Medicine [address] [phone] Federica Tom PA [address] [place] [phone] Health Maintenance Due Date Last Done Comments Hepatitis A Vaccines (1 of 2 - Risk 2-dose series) 1998 Pneumococcal Vaccine: Pediatrics (0 to 5 Years) and At-Risk Patients (6 to 64 Years) (1 of 2 - PCV) 1998 Colorectal Cancer Screening: Colonoscopy 06/19/2022 Social Influencers of Health Screening 06/19/2022 COVID-19 Vaccine ( season) 2024 Influenza Vaccine (#1) 2024 04/28/2015, 2004 Depression Screening 04/16/2025 04/16/2024 Breast Cancer Screening 06/28/2025 06/28/20, 06/28/2023, 06/21/2023, Additional history exists Cervical Cancer Screening: HPV 07/13/2026 07/13/2021 Cholesterol Screening (Lipid Panel) 05/20/2028 05/20/2023 DTaP,Tdap,and Td Vaccines (5 - Td or Tdap) 01/08/2032 01/07/2022, 04/21/2019, 04/20/2012, Additional history exists MMR Vaccines Completed 01/23/1991, 12/09/1980 HIV Screening Completed 12/16/2000 Hepatitis B Vaccines Completed 05/30/2008, 08/20/2003, 07/30/1998 Hepatitis C Screening Completed 04/26/2018 HIB Vaccines Aged Out No longer eligi ble based on patient's age to complete this topic HPV Vaccines Aged Out No longer eligi ble based on patient's age to complete this topic IPV Vaccines Aged Out No longer eligi ble based on patient's age to complete this topic Meningococcal ACWY Vaccine Aged Out N o longer eligible based on patient's age to complete this topic Meningococcal B Vacine Aged Out No lo nger eligible based on patient's age to complete this topic RSV Immunization Patients Under 20 months Aged Out No longer eligible based on patient's age to complete this topic Varicella Vaccines Aged Out No longer eligible based on patient's age to complete this topic Procedures Procedure Name Priority Date/Time Associated Diagnosis Comments DEPRESSION SCREENING Routine 04/16/2024 DX MAMMO INCL CAD UNI Routine 06/28/2023 10:08 AM EST Other abnormal and inconclusive findings on diagnostic imaging of breast LIPID PANEL Routine 05/20/2023 HPV Routine 07/13/2021 HEPATITIS C SCREENING Routine 04/26/2018 HIV SCREENING Routine 12/16/2000 from Last 3 Months or Most Recently Relevant to Health Maintenance Results * Depression Screening (04/16/2024) Pathologist [facility] Depression Screening abstracted [facility] Provider HEALTH MAINTENANCE Final Result * DX MAMMO INCL CAD UNI (06/28/2023 10:08 AM EST) Anatomical Region Laterality Modality Mammography 06/21/2023 11:0 8 AM EST Narrative 06/28/2023 10:14 AM EST Please see combined report, same date. Procedure Note Ana M Montenegro MD - 08/16/2023 Please see combined report, same date. Result [facility] Yunior Krishnamurthy MD IM BI PROCEDURE S Final Result * (ABNORMAL) Lipid panel (05/20/2023) [facility] LDL/HDL Ratio 4 0 - 4 Triglycerides 80 0 - 150 mg/dL Cholesterol 179 0 - 200 mg/dL HDL 50 >=40 mg/dL LDL Cholesterol 113(A) 0 - 100 mg/dL Blood Venous blood specimen / Unknown Result [facility] LAB BLOOD ORDERABLES Antonia l Result * Cervical Cancer Screening: HPV (07/13/2021) [facility] Cervical Cancer Screening: HPV abstracted, no interpretation Historical [facility] HEALTH MAINTENANCE Final Result * Hepatitis C Screening (04/26/2018) [facility] Hepatitis C Screening abstracted Historical [facility] HE[facility] MAINTENANCE Final Result * HIV Screening (12/16/2000) [facility] HIV Screening abstracted [facility] HEALTH MAINTENANCE Final Result from Last 3 Months or Most Recently Relevant to Health Maintenance Insurance [id number] Care Teams Coo Relationship Specialty Start Date End Date Yunior Krishnamurthy MD [address] [facility], [place] PCP - General Internal Medicine 03/04/22
== END 2024-09-20 15:30 | disposition home or self-care (01) ==
LOC: HO.PMC 14:57
PROVIDERS: Visit Provider Nurse Practitioner Family
DX: M25.551 Pain in right hip (principal); M54.16 Radiculopathy, lumbar region; M54.50 Low back pain, unspecified; M79.604 Pain in right leg; M54.2 Cervicalgia; M46.1 Sacroiliitis, not elsewhere classified
CPT/HCPCS: 99214; G2211

== ENCOUNTER → 2024-09-20 14:57 | Outpatient (BNVA) | payer OTHER, SELFPAY | PROVIDERS: Visit Provider Nurse Practitioner Family | DX: M54.16 Radiculopathy, lumbar region (principal); M25.551 Pain in right hip; M79.604 Pain in right leg; M54.2 Cervicalgia; M46.1 Sacroiliitis, not elsewhere classified | CPT/HCPCS: 99212 ==

== ENCOUNTER 2024-09-21 13:55 | Outpatient (AMB) | payer OTHER, SELFPAY ==
--- NOTE | 2024-09-21 13:40 | A.OFFVIS_ITS ---
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 Hand Required: No Accompanied by: Self / Same As Patient Allergies No Known Allergies Allergy (Verified 09/21/24 13:40) Medication List - Last Reconciled 09/21/24 by JAZMINE Berumen albuterol sulfate 90 mcg/actuation 2 puffs inhalation Q4-6H PRN 30 days amitriptyline 75 mg PO BEDTIME arm brace Left elbow brace for ulnar neuropathy baclofen 10 mg PO TID famotidine mg PO gabapentin 300 mg PO TID 30 days galcanezumab-gnlm (Emgality Pen) 240 mg (2 mL) subcut ONCE 30 days galcanezumab-gnlm (Emgality Pen) 120 mg subcut ONCE 30 days melatonin 3 mg PO BEDTIME methocarbamol 750 mg PO Q8H 30 days naproxen sodium mg PO omeprazole 20 mg PO DAILY trazodone 50 mg PO BEDTIME ubrogepant (Ubrelvy) 50 - 100 mg (0.5 - 1 x 100 mg) PO ONCE PRN 30 days verapamil ER 100 mg PO BEDTIME 30 days zolpidem 5 mg PO BEDTIME PRN HPI Comments Details: 43-yr-old female presents for f/u televideo visit. Pt denies any significant interval medical changes. Patient reports she is again having daily migraine and neck and body pains. She states that Emgality has been helpful in the past, however she has not been able to take it consistently due to issues with insurance authorizations or the pharmacy. As the migraine attacks are daily, she is interested in resuming Emgality if she can resume it regularly and optimizing her migraine preventative treatment further if possible. Ubrelvy is helpful, but she runs out of it before the end of the month. She does use OTC naproxen with some but not full effect. Her other comorbidities include elevated blood pressure without current anti-HTN tx, sleep difficulties including some symptoms of RLS, asthma. Baseline headache characteristics: Aura: Blurred vision and shiny lights. Mod-Severe. Headache locations vary, but mostly right frontal. Pain can be thro bbing, stabbing. A/w Photophobia, phonophobia, osmophobia, N/V, dizziness, brain fog, generalized weakness, neck/shoulder pain. No focal weakness or PFSH Medical History Swelling of both lower extremities Chronic migraine with aura Chronic migraine without aura Migraine with aura Surgical History No pertinent past surgical history Family History Mother Lung cancer Smoker Father No problems noted. 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[employer] Physical Exam Const General: cooperative and no acute distress Orientation/consciousness: patient oriented x3 Resp Effort & Inspection: normal respiratory effort and able to speak in complete sentences Neuro General: patient oriented x3 Cognition (Neuro): normal cognition Psych Appearance: grossly normal Mental Status: mental status grossly normal Speech and movement: Normal speech and movement present Affect: normal affect Attitude: cooperative Telehealth Telehealth Telehealth Platform: [employer] Location of provider rendering services: practice address Location of patient: address on file Patient Identification confirmed using: Name, : Yes Telehealth method: video Patient verbally consented to treatment: Yes Patient verbally consented to billing insurance company: Yes Patient informed of any privacy concerns related to visit: Yes Minutes spent on Phone/Video with Pt.: 19 Assessment & Plan Assessment & Plan (1) Chronic migraine without aura: Code(s): G43.709 - Chronic migraine without aura, not intractable, without status migrainosus Category: Medical (2) Migraine with aura: Code(s): G43.109 - Migraine with aura, not intractable, without status migrainosus Category: Medical (3) Sleep disorder, unspecified: Code(s): G47.9 - Sleep disorder, unspecified Category: Medical (4) Excessive daytime sleepiness: Code(s): G47.19 - Other hypersomnia Category: Medical (5) Snoring: Code(s): R06.83 - Snoring Category: Medical Plan For overall headache management: Continue to optimize good self-care, including but not limited to maintaining a healthy diet,? adequate fluid intake, adequate sleep, and engaging in regular physical activity. Pt's previous HST was not done- we will revisit at follow-up ? For acute migraine treatment: Trial Ubrogepant (Ubrelvy) 100mg tab, 1/2 - 1 tab (50-100mg) at onset of headache, may repeat in 2 hours. Max of 2 tabs (200mg) per 24 hours. Advised to adjunct with OTC Naproxen liquid gels 440mg q 12 hrs prn. Previous acute migarine tx's: Sumatriptan- not tolerated. Naratriptan- not tolerated. ? For headache prevention medication: Continue Amitriptyline from 75mg qhs- cannot increase dose d/t dry mouth. Resume Emgality 240mg sc x's 1, then 120mg sc q month- as this has been previously effective. However, we will send order to be [facility], in hopes that this will optimize medication delivery/adherence. Trial verapamil ER 100 mg q.h.s. Obtain baseline EKG due to starting verapamil. Previous migraine prevention trials- Riboflavin and Magnesium- ineffective. Topiramate 25-50mg qhs- not tolerated. Migraine tx contraindications- BBs d/t asthma and SOB s/s. Future considerations: Candesartan or Namenda. ? f/u in 6 months or sooner prn.. Orders: Orders ECG 12 lead EKG Today I10 - Essential (primary) hypertension, T46.1X5A - Adverse effect of calcium-channel blockers, initial encounter Medications: New verapamil ER 100 mg PO BEDTIME 30 caps 6RF 30 days galcanezumab-gnlm (Emgality Pen) Start 07/14/2024. Maintenance dose of 120 mg subcu q.month. 120 mg subcut ONCE 1 mL 6RF 30 days Changed From galcanezumab-gnlm (Emgality Pen) Loading dose: 120 mg subcu injection x2 in alternate sites (total 240 mg). To be followed by maintenance dose of 120 mg subcu q.month. 240 mg (2 mL) subcut ONCE 30 days 2 mL 6RF To galcanezumab-gnlm (Emgality Pen) Start 09/21/2024. Loading dose: 120 mg subcu injection x2 in alternate sites (total 240 mg). 240 mg (2 mL) subcut ONCE 2 mL 0RF 30 days Refilled ubrogepant (Ubrelvy) take at onset of migraine, may repeat in 2hrs (may take w/ Ibuprofen) 50 - 100 mg (0.5 - 1 x 100 mg) PO ONCE PRN 16 tabs 6RF migraine headache 30 days Coding Level of Care Code Tele Est Pt Level 4 (54169) Diagnoses Chronic migraine without aura G43.709 Migraine with aura G43.109 Sleep disorder, unspecified G47.9 Excessive daytime sleepiness G47.19 Snoring R06.83
--- OUTSIDE RECORDS SUMMARY | 2024-09-21 15:38 | XMS_ITS | Clinical Summary ---
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 (Dyspepsia noted in 2013 [facility] notes) Last Assessment & Plan: Persistent upper [...] PROCEDURE: HISTORICAL TUBAL LIGATION ESOPHAGOGASTRODUODENOSCOPY 06/22/2017 PROCEDURE: TX ESOPHAGOGASTRODUODENOSCOPY TRANSORAL DIAGNOSTIC; COMMENT: normal with normal [...] 11/13/2024 4:30 PM EDT Appointment Radiology Department [address] [phone] 11/30/2024 10:00 AM EDT Office Visit Adult Medicine [address] [phone] Federica Tom PA [address] [place] [id number] Health Maintenance Due Date Last Done Comments [...] Maintenance Results * Depression Screening (04/16/2024) Pathologist [facility] Depression Screening abstracted [facility] Provider HEALTH MAINTENANCE Final Result * DX MAMMO INCL CAD UNI (06/28/2023 10:08 AM EST) Anatomical Region Laterality Modality Mammography 06/21/2023 11:0 8 AM EST Narrative 06/28/2023 10:14 AM EST Please see combined report, same date. Procedure Note Ana M Montenegro MD - 08/16/2023 Please see combined report, same date. Result [facility] Yunior Krishnamurthy MD IM BI PROCEDURE S Final Result * (ABNORMAL) Lipid panel (05/20/2023) [facility] LDL/HDL Ratio 4 0 - 4 Triglycerides 80 0 - 150 mg/dL Cholesterol 179 0 - 200 mg/dL HDL 50 >=40 mg/dL LDL Cholesterol 113(A) 0 - 100 mg/dL Blood Venous blood specimen / Unknown Result [facility] BLOOD ORDERABLES Antonia l Result * Cervical Cancer Screening: HPV (07/13/2021) [facility] Cervical Cancer Screening: HPV abstracted, no interpretation Historical [facility] MAINTENANCE Final Result * Hepatitis C Screening (04/26/2018) [facility] Hepatitis C Screening abstracted Historical [facility] Final Result * HIV Screening (12/16/2000) [facility] HIV Screening abstracted [facility] HE[facility] MAINTENANCE Final Result from Last 3 Months or Most Recently Relevant to Health Maintenance Insurance [facility] Care Teams [employer] Filler [employer] Relationship Specialty Start Date End Date Yunior Krishnamurthy MD [address] [facility], [place] PCP - General Internal Medicine 03/04/22
== END 2024-09-25 07:09 | disposition home or self-care (01) ==
LOC: HO.HSMS 13:56
PROVIDERS: Visit Provider Nurse Practitioner Family
DX: G43.709 Chronic migraine without aura, not intractable, without status migrainosus (principal); G43.109 Migraine with aura, not intractable, without status migrainosus; G47.9 Sleep disorder, unspecified; G47.19 Other hypersomnia; R06.83 Snoring
CPT/HCPCS: 99214

== ENCOUNTER → 2024-09-21 13:55 | Outpatient (BNVA) | payer OTHER, SELFPAY | PROVIDERS: Visit Provider Nurse Practitioner Family ==